=== PATIENT | male | born 1990 | race Caucasian/White ===

== ENCOUNTER 2017-11-24 15:06 | Emergency (ER) | payer OTHER, MEDICAID ==
[~2017-11-24] VITALS: Ht 182.9 cm; Wt 123.0 kg
[2017-11-24 16:21] VITALS: BP 107/71
== END 2017-11-24 18:44 | disposition home or self-care (01) ==
LOC: ER 16:21
DX: F32.9 Major depressive disorder, single episode, unspecified (principal); F12.10 Cannabis abuse, uncomplicated
CPT/HCPCS: 99281; 99284

== ENCOUNTER 2021-08-06 20:06 | Emergency (ER) | payer MEDICAID, OTHER ==
[~2021-08-06] VITALS: Ht 170.2 cm; Wt 118.0 kg
[2021-08-06] MEDS ORDERED: ZIPRASIDONE HCL 20MG CAPSULE PO ONE (21:30)
[2021-08-06] MEDS ORDERED: LORAZEPAM 1MG TABLET PO ONE (21:30)
[2021-08-06] MEDS ORDERED: ONDANSETRON 4MG ODT PO ONE (21:30)
[2021-08-06 22:32] LABS: BASOPHILS % 0.5 % (0.0-2.0); EOSINOPHILS % 0.6 % (0.0-5.0); HEMATOCRIT. 41.4 % (42.0-52.0); HEMOGLOBIN. 14.1 g/dL (14.0-18.0); LYMPHOCYTES % 18.5 % (20.0-50.0); MEAN CORPUSCULAR HEMOGLOBIN 29.1 pg (28.0-32.0); MEAN CORPUSCULAR VOLUME 85.2 fL (80.0-94.0); MEAN PLATELET VOLUME 6.2 fl (7.4-10.4); NEUTROPHILS % 71.4 % (40.0-76.0); PLATELET 253 x1000/uL (130-400); RED BLOOD CELL COUNT 4.86 mill/uL (4.7-6.1); RED CELL DISTRIBUTION WIDTH 13.8 % (11.6-14.6)
[2021-08-06 22:39] LABS: CHLORIDE 104 mEq/L (98-107)
[2021-08-06 22:43] LABS: ETHANOL BLOOD < 10 mg/dL
[2021-08-07] MEDS ORDERED: ZIPRASIDONE MESYLATE 20MG/VIAL IM SCH (04:45)
[2021-08-07] MEDS ORDERED: ZIPRASIDONE MESYLATE 20MG/VIAL IM ONE (20:30)
[2021-08-07] MEDS: ZIPRASIDONE HCL 20MG CAPSULE PO SCH (20:52)
[2021-08-08 06:19] LABS: CLARITY URINE CLEAR (CLEAR); COLOR URINE YELLOW (YELLOW); KETONES URINE NEGATIVE (NEGATIVE); LEUKOCYTE ESTERASE URINE NEGATIVE (NEGATIVE); NITRITE URINE NEGATIVE (NEGATIVE); OCCULT BLOOD URINE NEGATIVE (NEGATIVE); PH URINE 6.5 (4.5-8.0); PROTEIN URINE NEGATIVE (NEGATIVE); SPECIFIC GRAVITY URINE 1.018 (1.005-1.030)
[2021-08-08 06:28] LABS: *AMPHETAMINES SCREEN URINE NEGATIVE (NEGATIVE); *BARBITURATES SCREEN URINE NEGATIVE (NEGATIVE); *BENZODIAZEPINES SCREEN URINE NEGATIVE (NEGATIVE); *COCAINE SCREEN URINE NEGATIVE (NEGATIVE); METHADONE URINE SCREEN NEGATIVE (NEGATIVE)
[2021-08-08 06:29] LABS: CANNABINOID URINE SCREEN PRESUMTIVE POSITIVE (NEGATIVE); OPIATES URINE SCREEN NEGATIVE (NEGATIVE); PHENCYCLIDINE URINE SCREEN NEGATIVE (NEGATIVE)
[2021-08-08] MEDS: ZIPRASIDONE HCL 20MG CAPSULE PO SCH ×2 (12:14→19:32)
[2021-08-09] MEDS: ZIPRASIDONE HCL 20MG CAPSULE PO SCH (09:15)
[2021-08-09] MEDS ORDERED: MAGNESIUM/ALUMINUM HYDROXIDE/SIMETHICONE 30ML UDC PO NR (21:15)
[2021-08-09] MEDS ORDERED: MAGNESIUM/ALUMINUM HYDROXIDE/SIMETHICONE 30ML UDC PO ONE (21:15)
[2021-08-10] MEDS: ZIPRASIDONE HCL 20MG CAPSULE PO SCH (08:32)
[2021-08-10 12:10] VITALS: BP 138/70
== END 2021-08-10 12:13 | disposition home or self-care (01) ==
LOC: ER 20:06
DX: F23 Brief psychotic disorder (principal); F42.9 Obsessive-compulsive disorder, unspecified; F22 Delusional disorders; F60.0 Paranoid personality disorder; Z20.822 Contact with and (suspected) exposure to COVID-19
CPT/HCPCS: 36415; 80048; 80305; 80307; 80320; 80329; 81003; 85025; 96372; 99285; C9803; J3486; Q0162; U0003; U0005; 84703; G0480

== ENCOUNTER 2021-08-17 18:17 | Emergency (ER) | payer OTHER ==
[~2021-08-17] VITALS: Ht 182.9 cm; Wt 137.0 kg
[2021-08-17] MEDS ORDERED: QUET100T PO (18:27)
[2021-08-17] MEDS ORDERED: LORAZEPAM 1MG TABLET PO ONE (19:00)
[2021-08-17] MEDS ORDERED: ONDANSETRON 4MG ODT PO ONE (19:30)
[2021-08-17 19:57] LABS: BASOPHILS % 0.4 % (0.0-2.0); EOSINOPHILS % 0.1 % (0.0-5.0); HEMATOCRIT. 44.3 % (42.0-52.0); LYMPHOCYTES % 15.8 % (20.0-50.0); MEAN CORPUSCULAR HEMOGLOBIN 29.2 pg (28.0-32.0); MEAN PLATELET VOLUME 6.6 fl (7.4-10.4); MONOCYTES % 5.7 % (2.0-8.0); PLATELET 269 x1000/uL (130-400); RED BLOOD CELL COUNT 5.15 mill/uL (4.7-6.1); RED CELL DISTRIBUTION WIDTH 14.1 % (11.6-14.6)
[2021-08-17 20:07] LABS: CHLORIDE 101 mEq/L (98-107)
[2021-08-17] MEDS ORDERED: LORAZEPAM 1MG TABLET PO NR (21:53)
[2021-08-17] MEDS ORDERED: ONDANSETRON 4MG ODT PO NR (21:54)
[2021-08-17 22:15] VITALS: BP 136/86
== END 2021-08-17 23:05 | disposition home or self-care (01) ==
LOC: ER 18:17
DX: R07.89 Other chest pain (principal); R11.0 Nausea; Z77.098 Contact with and (suspected) exposure to other hazardous, chiefly nonmedicinal, chemicals
CPT/HCPCS: 36415; 71045; 80053; 83880; 84484; 85025; 93005; 99285; Q0162